=== PATIENT | female | born 1975 | race Hispanic/Latino ===

== ENCOUNTER 2020-02-12 17:08 | Emergency (ER) | payer SELFPAY ==
[~2020-02-12 17:08] MED LIST: Iopamidol-370 76% 500 ML 1 ML ONE
[2020-02-12 17:35] LABS: #Basophils 0.1 thou/uL (0.0-0.2); #Eosinphils 0.1 thou/uL (0.0-0.7); #Lymphocytes 3.4 thou/uL (1.20-3.40); #Monocytes 0.6 thou/uL (0.11-0.59); #Neutrophils 5.4 thou/uL (1.40-6.50); %Basophils 0.8 % (0.0-1.0); %Eosinophils 1.5 % (0.0-10.0); %Lymphocytes 35.2 % (21.0-51.0); %Monocytes 5.8 % (0.0-10.0); %Neutrophils 56.8 % (42.0-75.0); Mean Corpuscular HGB CONC 34.3 g/dL (32.0-36.0); Mean Corpuscular Hemoglobin 30.6 pg (27.0-31.0); Mean Corpuscular Volume 89.2 fL (78.0-98.0); Mean Platelet Volume 7.9 fL (7.4-10.4); Platelet Count 290 thou/uL (130-400); RBC Distribution Width 12.3 % (11.5-14.5); Red Blood Cell (RBC) Count 4.89 mill/uL (4.20-5.40); White Blood Cell (WBC) Count 9.6 thou/uL (4.8-10.8)
[2020-02-12] MEDS ORDERED: Morphine 4 MG/ML VIAL ONE (17:35)
[2020-02-12] MEDS ORDERED: Ondansetron PF 4 MG/2 ML Vial ONE (17:35)
[2020-02-12 17:56] LABS: ALT (SGPT) 34 U/L (8-55); AST (SGOT) 28 U/L (5-34); Albumin 4.3 g/dL (3.5-5.0); Alkaline Phosphatase 100 U/L (40-110); Anion Gap 15 mmol/L (10-20); BUN (Urea Nitrogen) 14 mg/dL (7.0-18.7); Bilirubin, Total 0.3 mg/dL (0.2-1.2); Calc. Creatinine Clearance 0 mL/min (70-130); Calcium 8.9 mg/dL (7.8-10.44); Carbon Dioxide 26 mmol/L (22-29); Chloride 104 mmol/L (98-107); Globulin 3.6 g/dL (2.4-3.5); Glucose 100 mg/dL (70-105); Potassium 3.7 mmol/L (3.5-5.1); Protein, Total 7.9 g/dL (6.0-8.3); Sodium 141 mmol/L (136-145)
[2020-02-12] MEDS ORDERED: diphenhydrAMINE 50 MG/ML VIAL ONE (18:12)
[2020-02-12] MEDS ORDERED: Metoclopramide HCl 10 MG/2 ML VIAL ONE (18:12)
[2020-02-12 18:14] LABS: BHCG - Serum Negative (NEGATIVE); Pregs Control Background? CLEAR/WHITE (CLR/WHITE); Pregs Control Bar Appear? YES (CONTROL BAR)
--- NOTE | 2020-02-12 19:43 | CT ---
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 Patient claims of headache and right bulging. COMPARISON: None FINDINGS: There is sclerosis and thickening involving the right sphenoid bone, right lateral orbital wall with extension into right calvarium including the squamosal portion of the right temporal bone. These findings have an appearance most suggestive of osseous changes of Paget's disease. The enlargement of the osseous structures in region of sclerosis results in narrowing at the level of the orbital apex and results in right exophthalmos. Postoperative changes of right craniotomy defect are present with soft tissue density and fat in this region likely attributable to the postoperative changes. There is absence of a small portion of the right anterior lateral frontal bone. There is a small enhancing mass along the inner table of the lateral left frontal bone just anterior to the level of the sylvian fissure likely due to small meningioma which measures 7 mm in greatest transverse dimension. This results in very slight mass effect on the adjacent left frontal lobe. No a dditional abnormal areas of enhancement are seen. There is no evidence of an acute cortical infarction, hemorrhage, mass effect, or midline shift. The ventricular system is normal in size, shape, and position. Mucosal thickening is seen in the visualized ethmoidal air cells. IMPRESSION: 1. 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 Resultant narrowing in the region of the right orbital apex as per the with resul tant right exophthalmos. 2. Postoperative changes right calvarium. 3. Small left anterolateral frontal meningioma. 4. No acute intracranial abnormality demonstrated.
--- NOTE | 2020-02-12 19:48 | CT ---
EXAM: CT Facial Bones W Con PROVIDED CLINICAL HISTORY: Headache with obvious right bulging. Patient reports history of prior brain tumor, partially removed 9 years ago. Mass. COMPARISON: CT head on 02/12/2012 FINDINGS: As noted on CT scan of the head, there is sclerosis and thickening/hypertrophy involving the right sp henoid bone, right lateral orbital wall with extension into right calvarium including the squamosal portion of the right temporal bone. These findings have an appearance most suggestive of osseous nguyen ges of Paget's disease. The enlargement of the osseous structures in region of sclerosis results in narrowing at the level of the orbital apex and results in right exophthalmos. Postoperative changes of right craniotomy defect are present with soft tissue density and fat in this region likely attributable to the postoperative changes. There is absence of a small portion of the right anterior lateral frontal bone. There is a small enhancing mass along the inner table of the lateral left frontal bone just anterior to the level of the sylvian fissure likely due to small meningioma which measures 7 mm in greatest transverse dimension. This results in very slight mass effect on the adjacent left frontal lobe. No a dditional abnormal areas of enhancement are seen. There is no evidence of an acute cortical infarction, hemorrhage, mass effect, or midline shift. The ventricular system is normal in size, shape, and position. Mucosal thickening is seen in the visualized ethmoidal air cells. Small mucus retention cyst is seen in the right maxillary antrum. There is mild irregularity of the right lacrimal gland, but this is likely related to deformity secon herb to the pagetoid changes involving the right lateral orbital wall. IMPRESSION: 1. 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 Resultant narrowing in the region of the right orbital apex with resultant right exophthalmos. 2. Postoperative changes right calvarium. 3. Small left anterolateral frontal meningioma.
== END 2020-02-12 23:52 | disposition home or self-care (01) ==
LOC: ERS 17:08
DX: R51.9 Headache, unspecified (principal); H05.241 Constant exophthalmos, right eye; I10 Essential (primary) hypertension; Z79.899 Other long term (current) drug therapy
CPT/HCPCS: 36415; 70470; 70487; 80053; 84703; 85025; 96365; 96366; 96375; J1200; J2270; J2405; J2765; Q9967

== ENCOUNTER 2020-06-20 09:09 | Outpatient (CLI) | payer OTHER | END 2020-06-20 09:10 | disposition home or self-care (01) | LOC: MRI 09:09 | PROVIDERS: ATTEND Neurological Surgery | DX: D32.9 Benign neoplasm of meninges, unspecified (principal) | CPT/HCPCS: 70553 ==